=== PATIENT | male | born 1945 | race Caucasian/White ===

== ENCOUNTER → 2019-05-20 14:53 | Outpatient (BNVA) | payer MEDICARE, OTHER, SELFPAY | PROVIDERS: Visit Provider Family Medicine | DX: L98.9 Disorder of the skin and subcutaneous tissue, unspecified (principal) | CPT/HCPCS: 88305 ==

== ENCOUNTER 2022-07-11 03:14 | Emergency (ER) | payer MEDICARE, OTHER, SELFPAY ==
[2022-07-11] VITALS (8 sets, daily range): BP systolic 96–113; BP diastolic 52–65; PULSE 62–86; RESP 16–24; TEMP 37; O2SAT 90–93; BMI 22.3
--- NOTE | 2022-07-11 03:31 | CTR_ITS ---
PROCEDURE INFORMATION: Exam: CT Lumbar Spine Without Contrast Exam date and time: 07/11/2022 3:54 AM Age: 77 years old Clinical indication: Numbness and weakness; Low back pain; Patient HX: Sudden onset of bilateral leg weakness with loss of sensation and back pain with inabilityto bear weight; Additional info: Back pain leg weakness TECHNIQUE: Imaging protocol: Computed tomography of the lumbar spine without contrast. Radiation optimization: All CT scans at this facility use at least one of these dose optimization techniques: automated exposure control; mA and/or kV adjustment per patient size (includes targeted exams where dose is matched to clinical indication); or iterative reconstruction. REPORTING DATA: Count of CT and Cardiac NM exams in prior 12 months: This patient has received 0 known CTs and 0 known cardiac nuclear medicine studies in the 12 months prior to the current study. COMPARISON: [place] [id number] 04/26/2012 4:56 PM RADIATION DOSE METRICS: Total DLP (mGy-cm): 450.36 FINDINGS: Bones/joints: The lumbar spine maintains a normal lordotic curvature. No spondylolisthesis. The vertebral bodies maintain normal height. The intervertebral discs maintain normal height. Mild lytic/sclerotic irregularity of the posterior L1 vertebral body. Questionable 10 mm sclerotic density in the lateral mid portion of the L1 vertebral body. Small sclerotic densities in the L2 vertebral body. Mild deformity in the anterior left superior endplate of L3 concerning for possible fracture versus Schmorl's node formation. Sclerosis in the posterior elements on the right at L3 including portions of the lamina and pedicle. 6 mm sclerotic density in the midportion of the L4 vertebral body. Soft tissues: The paravertebral soft tissues are unremarkable. CT/CT lumbar spine recon [id number] IMPRESSION: 1. Mild deformity in the anterior left superior endplate of L3 concerning for possible fracture, possibly pathologic, versus Schmorl's node formation. 2. Irregularity in the L1, L2, L3, and L4 vertebral bodies, including prominent sclerosis in the right posterior elements at L3. Correlate with any history of malignancy. 3. Recommend nonemergent follow-up MRI for further evaluation.
--- NOTE | 2022-07-11 03:31 | XRR_ITS ---
PROCEDURE INFORMATION: Exam: XR Chest Exam date and time: 07/11/2022 3:38 AM Age: 77 years old Clinical indication: Patient HX: Sudden onset of bilateral leg weakness. Unable to bear weight or stand. TECHNIQUE: Imaging protocol: Radiologic exam of the chest. Views: 1 view. COMPARISON: No relevant prior studies available. FINDINGS: Lungs: The lung parenchyma is clear. Pleural spaces: No pneumothorax. No pleural effusion. Heart/Mediastinum: The cardiomediastinal silhouette is within normal limits. Bones/joints: Unremarkable. XR/XR chest 1V portable [id number] IMPRESSION: No acute cardiopulmonary abnormality.
--- NOTE | 2022-07-11 03:34 | ECG_ITS ---
[facility] Test Date: 2022-07-11 Pat Name: Zain Brown Department: Room: Gender: Male Lube Man: : 1945 Requested By: Marguerite Rose Order Number: [id number] Tootie MD: Bebeto Claros M.D. Measurements Intervals [place] Rate: 77 P: 55 [place]: 148 QRS: 60 QRSD: 101 T: 78 QT: 389 QTc: 441 Interpretive Statements SINUS RHYTHM MODERATE ST DEPRESSION [0.05+ mV ST DEPRESSION] No previous ECG available for comparison Electronically Signed On 07-11-2022 11:00:25 CDT by Bebeto Claros M.D. [id number]
--- NOTE | 2022-07-11 03:35 | CTR_ITS ---
PROCEDURE INFORMATION: Exam: CT Head Without Contrast Exam date and time: 07/11/2022 3:49 AM Age: 77 years old Clinical indication: Walking, difficulty and weakness, extremity; Patient HX: Sudden onset of bilateral leg weakness with loss of sensation and unable to bear weight. TECHNIQUE: Imaging protocol: Computed tomography of the head without contrast. Radiation optimization: All CT scans at this facility use at least one of these dose optimization techniques: automated exposure control; mA and/or kV adjustment per patient size (includes targeted exams where dose is matched to clinical indication); or iterative reconstruction. REPORTING DATA: Count of CT and Cardiac NM exams in prior 12 months: This patient has received 0 known CTs and 0 known cardiac nuclear medicine studies in the 12 months prior to the current study. COMPARISON: No relevant prior studies available. RADIATION DOSE METRICS: Total DLP (mGy-cm): 1021.4 FINDINGS: Brain: Focal 9 x 6 x 4 mm area of increased density in the right frontal lobe (axial series 10, image 40), concerning for acute intraparenchymal hemorrhage. No significant surrounding edema or mass effect. No large territorial ischemic infarct identified. Subcortical and periventricular white matter hypoattenuation likely consistent with mild chronic microvascular ischemic disease. Prominent perivascular spaces versus old lacunar infarcts again noted in the bilateral basal ganglia. Cerebral ventricles: The ventricles are within normal limits. Paranasal sinuses: The visualized sinuses are unremarkable. Mastoid air cells: The visualized mastoid air cells are well aerated. Bones/joints: The osseous structures are intact. Soft tissues: Unremarkable. CT/CT head wo con* [id number] IMPRESSION: 1. Focal 9 x 6 x 4 mm area of increased density in the right frontal lobe, concerning for acute intraparenchymal hemorrhage. 2. Mild chronic microvascular ischemic disease.
--- NOTE | 2022-07-11 03:36 | CTR_ITS ---
PROCEDURE INFORMATION: Exam: CT Abdomen And Pelvis With Contrast Exam date and time: 07/11/2022 3:54 AM Age: 77 years old Clinical indication: Abdominal pain; Patient HX: C/O abd pain TECHNIQUE: Imaging protocol: Computed tomography of the abdomen and pelvis with contrast. Radiation optimization: All CT scans at this facility use at least one of these dose optimization techniques: automated exposure control; mA and/or kV adjustment per patient size (includes targeted exams where dose is matched to clinical indication); or iterative reconstruction. Contrast material: OMNI 350; Contrast volume: 100 ml; Contrast route: INTRAVENOUS (IV); REPORTING DATA: Count of CT and Cardiac NM exams in prior 12 months: This patient has received 0 known CTs and 0 known cardiac nuclear medicine studies in the 12 months prior to the current study. COMPARISON: CR (CHEST, ) 07/11/2022 3:38 AM RADIATION DOSE METRICS: Total DLP (mGy-cm): 450.36 FINDINGS: Lungs: Respiratory motion limiting fine pulmonary detail. Liver: 6 mm cyst in the left lobe of the liver. The liver is normal in size and contour. Gallbladder and bile ducts: The gallbladder appears unremarkable. No intra- or extra-hepatic biliary ductal dilatation. Pancreas: The pancreas appears normal. Spleen: The spleen appears normal. Adrenal glands: The adrenals appear normal. Kidneys and ureters: 10 mm complex cyst versus mass in the medial upper pole the right kidney (axial series 5, image 33). Fluid density cyst in the lower pole the right kidney. Stomach and bowel: The stomach is unremarkable. The small bowel loops are not abnormally dilated. The large bowel loops are not abnormally dilated. Appendix: No signs of appendicitis. Intraperitoneal space: No ascites or significant fluid collection. Vasculature: The aorta is nonaneurysmal. The IVC appears normal. Lymph nodes: There are no enlarged lymph nodes. Urinary bladder: Circumferential bladder wall thickening. Reproductive: The prostate is enlarged with focal protrusion extending from the superior margin into the base of the bladder. Possible hydrocele. Bones/joints: Multiple sclerotic densities noted in the lumbar spine. Schmorl's node formation versus fracture of the superolateral left endplate of L3. Well-marginated sclerotic lesion in the right superior acetabulum measuring 2.2 x 1.9 x 2.6 cm (axial series 5, image 66). Few additional smaller satellite sclerotic densities noted. Focal sclerosis in the right posterior elements of L3. Soft tissues: Lipoma in the superficial soft tissues overlying the left abdominal wall measuring 8 x 2 x 10 cm (axial series 5, image 26). Other findings: Motion artifact limiting exam. CT/CT abdomen pelvis w con* [id number] IMPRESSION: 1. Prostatomegaly with protrusion into the base of the bladder. Recommend follow-up to exclude malignancy. 2. 10 mm complex cyst versus mass in the medial upper pole of the right kidney. Recommend follow-up ultrasound or multiphase MRI for further evaluation. 3. Multiple sclerotic densities noted in the lumbar spine and pelvis, correlate with any history of malignancy. COMMENTS: Consistent with the [employer]'s Incidental Findings Committee white paper (J Am Jose Radiol 2018): Any incidental renal lesion less than 1 cm or classified as too small to characterize, or any incidental cystic renal lesion characterized as simple-appearing, is likely benign. No follow-up imaging is recommended for these lesions per consensus recommendations based on imaging criteria.
--- NOTE | 2022-07-11 03:36 | ED_ITS ---
HPI - Weakness General: Chief complaint: Weakness Stated complaint: leg weakness Time Seen by Provider: 07/11/22 03:16 Source: patient Mode of arrival: ambulatory Limitations: no limitations History of Present Illness: 77-year-old male states he had eaten overnight started having some abdominal cramping with some back pain he states that roughly an hour half ago he started getting severe weakness of his legs. He states that his right leg he cannot move at all any has no feeling that leg and is having weakness in his left leg as well he can move his foot and lift his leg slightly but not really able to move it otherwise. He states he has decrease in Station in that left leg to he states his abdominal and back pain is currently gone no history of any medical issues. Denies any vomiting or diarrhea or fever Associated symptoms: Denies chest pain, chills, dysuria, easy bruising, fever(s), headache(s), nausea or vomiting Review of Systems Const: Denies: fever(s), chills, body aches or change in appetite Eyes: Denies: blurry vision or eye discomfort ENMT: Denies: throat pain or dental pain Card: Denies: chest pain Resp: Denies: dyspnea GI: Reports: abdominal pain; Denies: nausea, vomiting or diarrhea : Denies: dysuria Musc: Reports: back pain and muscle weakness; Denies: neck pain Skin/Breast: Denies: rash Neuro: Denies: headache(s) Psych: Denies: depression Khalif/Lymph: Denies: easy bruising All/Imm: Denies: urticaria PFS ED PFSH: Medical History (Updated 07/11/22 @ 05:06 by Jr Rose MD) No pertinent past medical history Social History Smoking and tobacco status: current every day smoker Physical Exam Const: COMMON NORMALS: no acute distress, patient oriented x3 and healthy appearing HENMT: COMMON NORMALS: normocephalic and atraumatic HEAD & SCALP: normocephalic and atraumatic Eye: COMMON NORMALS: Equal, round and reactive pupils present and EOMs intact bilaterally PUPIL: Yes Equal, round and reactive pupils present Neck/C-Spine: COMMON NORMALS: full ROM and supple Chest: COMMONS NORMALS: normal inspection of the chest and normal palpation of entire chest wall Resp: COMMON NORMALS: normal respiratory effort, No retractions, No use of accessory muscles and clear to auscultation bilaterally AUSCULTATION: clear to auscultation bilaterally Cardio: COMMON NORMALS: regular rate, regular rhythm and No murmurs present (Cardio) RATE: regular rate RHYTHM: regular rhythm GI: COMMON NORMALS: Normal to inspection, nondistended, normoactive bowel so unds present, Soft to palpation, non-tender and no masses PALPATION: Yes Soft to palpation Extremity: COMMON NORMALS: normal to inspection NARRATIVE EXTREMITY EXAM: Severe weakness to the right leg he is unable to move his leg or his feet he has decreased pinprick sensation in the right leg up to his groin he has decreased sensation to pinprick to the left leg up to the knee he is able to lift his left leg against gravity barely but immediately fell he is unable to walk. Neuro: COMMON NORMALS: patient oriented x3 CRANIAL NERVES: Yes CN normal except as noted SPEECH: speech normal DEEP TENDON REFLEXES: Right patellar reflex intensity grade: 2+, Left patellar reflex intensity grade: 2+, Right ankle reflex intensity grade: 2+ and Left ankle reflex intensity grade: 2+ OTHER: Severe weakness to the right leg he is unable to move his leg or his feet he has decreased pinprick sensation in the right leg up to his groin he has decreased sensation to pinprick to the left leg up to the knee he is able to lift his left leg against gravity barely but immediately fell he is unable to walk. He has normal strength sensation to the upper extremity Psych: COMMON NORMALS: mental status grossly normal, Normal thought process present and cooperative THOUGHT PROCESS: Normal thought process present Skin: COMMON NORMALS: no rashes or lesions noted and no wounds GENERAL SKIN EXAM: no rashes or lesions noted Course Vital Signs: Vital signs: Vital Signs Temperature 98.6 F 07/11/22 03:15 Pulse Rate 75 07/11/22 04:15 Respiratory Rate 16 07/11/22 04:45 Blood Pressure 107/59 07/11/22 04:45 Pulse Oximetry 92 07/11/22 04:45 Oxygen Delivery Me thod Room Air 07/11/22 04:45 MDM - Weakness Medical Decision Making Patient presents here with bilateral leg weakness he did have a head CT that showed a possible intraparenchymal hemorrhage. On the CT of his abdomen he does have a possible mass in his bladder also on his CT L-spine he has a deformity and L3 could be pathologic still concerned this patient has cauda equina syndrome as he has bilateral weakness with loss of pinprick his brain hemorrhage does not really explain the symptoms as well I spoke to ER physician at [facility] will transfer there high-level care for neurosurgery capabilities and emergent MRI. Medical Records I reviewed the patient's medical records. Lab Data 07/11/22 03:30 07/11/22 03:30 Radiology Impressions Chest X-Ray 07/11/22 03:31 IMPRESSION: No acute cardiopulmonary abnormality. Lumbar Spine CT 07/11/22 03:31 IMPRESSION: 1. Mild deformity in the anterior left superior endplate of L3 concerning for possible fracture, possibly pathologic, versus Schmorl's node formation. 2. Irregularity in the L1, L2, L3, and L4 vertebral bodies, including prominent sclerosis in the right posterior elements at L3. Correlate with any history of malignancy. 3. Recommend nonemergent follow-up MRI for further evaluation. Head CT 07/11/22 03:35 IMPRESSION: 1. Focal 9 x 6 x 4 mm area of increased density in the right frontal lobe, concerning for acute intraparenchymal hemorrhage. 2. Mild chronic microvascular ischemic disease. ADDENDUM: 07/11/22 0436 THIS REPORT CONTAINS FINDINGS THAT MAY BE CRITICAL TO PATIENT CARE. The findings were verbally communicated via telephone conference with JR Fulton at 4:34 AM CDT on 07/11/2022. The findings were acknowledged and understood. Abdomen/Pelvis CT 07/11/22 03:36 IMPRESSION: 1. Prostatomegaly with protrusion into the base of the bladder. Recommend follow-up to exclude malignancy. 2. 10 mm complex cyst versus mass in the medial upper pole of the right kidney. Recommend follow-up ultrasound or multiphase MRI for further evaluation. 3. Multiple sclerotic densities noted in the lumbar spine and pelvis, correlate with any history of malignancy. COMMENTS: Consistent with the [place] [employer]'s Incidental Findings Committee white paper (J Am Jose Radiol 2018): Any incidental renal lesion less than 1 cm or classified as too small to characterize, or any incidental cystic renal lesion characterized as simple-appearing, is likely benign. No follow-up imaging is recommended for these lesions per consensus recommendations based on imaging criteria. Laboratory Results WBC 9.8 10^3/uL (4.0-10.0) 07/11/22 03:30 RBC 5.09 10^6/uL (4.1-5.3) 07/11/22 03:30 Hgb 15.1 g/dL (11.7-16.6) 07/11/22 03:30 Hct 45.8 % (42.0-52.0) 07/11/22 03:30 MCV 90.0 fl (80-94) 07/11/22 03:30 MCH 29.7 pg (28.0-34.0) 07/11/22 03:30 MCHC 33.0 g/dL (30.0-36.0) 07/11/22 03:30 RDW 13.2 % (12.1-15.1) 07/11/22 03:30 Plt Count 197 10^3/cmm (130-400) 07/11/22 03:30 MPV 11.4 fL (7.4-10.4) H 07/11/22 03:30 Neut % (Auto) 66.5 % 07/11/22 03:30 Lymph % (Auto) 22.7 % 07/11/22 03:30 Atlantic % (Auto) 5.9 % 07/11/22 03:30 Eos % (Auto) 3.3 % 07/11/22 03:30 Baso % (Auto) 1.1 % 07/11/22 03:30 Neut # (Auto) 6.52 10^3/uL (1.8-7.7) 07/11/22 03:30 Lymph # (Auto) 2.2 10^3/uL (0.8-4.8) 07/11/22 03:30 Atlantic # (Auto) 0.6 10^3/uL (0.2-0.9) 07/11/22 03:30 Eos # (Auto) 0.3 10^3/uL (0.0-0.8) 07/11/22 03:30 Baso # (Auto) 0.1 10^3/uL (0.0-0.1) 07/11/22 03:30 Nucleated RBC % (auto) 0 % 07/11/22 03:30 Nucleated RBCs # 0.0 /100WBC 07/11/22 03:30 PT 14.40 SECONDS (12.1-14.9) 07/11/22 03:30 INR 1.09 (0.8-1.2) 07/11/22 03:30 Sodium 140 mmol/L (136-145) 07/11/22 03:30 Potassium 3.7 mmol/L (3.5-5.1) 07/11/22 03:30 Chloride 107 mmol/L (98-107) 07/11/22 03:30 Carbon Dioxide 18 mmol/L (22-29) L 07/11/22 03:30 Anion Gap 18.7 (5-19) 07/11/22 03:30 BUN 21 mg/dL (8-23) 07/11/22 03:30 Creatinine 0.9 mg/dL (0.7-1.2) 07/11/22 03:30 GFR Calculation Not Reportable 07/11/22 03:30 Glucose 161 mg/dL (65-115) H 07/11/22 03:30 POC Glucose 145 mg/dL (70-110) H 07/11/22 03:35 Calculated Osmolality 296 mOsm/kg (285-295) H 07/11/22 03:30 Calcium 8.9 mg/dL (8.5-10.5) 07/11/22 03:30 Magnesium 1.7 mg/dL (1.7-2.3) 07/11/22 03:30 Total Bilirubin 0.5 mg/dL (0.15-1.2) 07/11/22 03:30 AST 17 U/L (0-40) 07/11/22 03:30 ALT 12 U/L (0-41) 07/11/22 03:30 Alkaline Phosphatase 227 U/L (40-130) H 07/11/22 03:30 Total Protein 6.8 g/dL (6.6-8.7) 07/11/22 03:30 Albumin 3.7 g/dL (3.5-5.2) 07/11/22 03:30 Globulin 3.1 g/dL (1.3-4.6) 07/11/22 03:30 EKG Data EKG 1: I personally reviewed and interpreted this EKG as follows: EKG interpretation date: 04/26/23 EKG interpretation time: 03:36 Interpretation: nsr hr [address] or t wave abnormalities qrs 101 qtc 420 Critical Care Time Critical Care Time: Critical Care Time: Yes Total Critical Care Time: 45 Attestation: The high probability of a clinically significant, sudden or life threatening deterioration of the patient's neuro system(s) required my full and direct attention, intervention and personal management. The critical care time is as shown. This time is in addition to time spent performing any reported procedures but includes the following: [x] Data and vital sign review and interpretation [x] Patient assessment, examination and intervention [x] Documentation [x] Medication orders and management Discharge Plan Discharge Patient Disposition: Xfer Short-Term Hosp Clinical Impression: Intraparenchymal hemorrhage of brain, Bilateral leg weakness Condition: Stable Prescriptions: No Action lidocaine (PF) 10 mg/mL (1 %) solution 10 mg SUBCUT ONCE Qty: 1 0RF No Known Home Medications Coding Level of Care Code ED Manager Home Healthcare for Ladarius Whitaker
[2022-07-11 03:41] LABS: Basophils # 0.1 10^3/uL (0.0-0.1); Basophils % 1.1 %; Eosinophils # 0.3 10^3/uL (0.0-0.8); Eosinophils % 3.3 %; Hematocrit 45.8 % (42.0-52.0); Hemoglobin 15.1 g/dL (11.7-16.6); Lymphocytes # 2.2 10^3/uL (0.8-4.8); Lymphocytes % 22.7 %; Mean Corpuscular Hemoglobin 29.7 pg (28.0-34.0); Mean Platelet Volume 11.4 fL (7.4-10.4); Monocytes # 0.6 10^3/uL (0.2-0.9); Monocytes % 5.9 %; Neutrophils # 6.52 10^3/uL (1.8-7.7); Neutrophils % 66.5 %; Nucleated Red Blood Cells % 0 %; Platelet Count 197 10^3/cmm (130-400); Red Blood Count 5.09 10^6/uL (4.1-5.3); Red Cell Distribution Width 13.2 % (12.1-15.1); White Blood Count 9.8 10^3/uL (4.0-10.0)
[2022-07-11 03:42] LABS: Glucose Point of Care 145 mg/dL (70-110)
[2022-07-11 03:59] LABS: INR 1.09 (0.8-1.2)
[2022-07-11 04:05] LABS: Alanine Aminotransferase 12 U/L (0-41); Albumin Level 3.7 g/dL (3.5-5.2); Alkaline Phosphatase 227 U/L (40-130); Anion Gap 18.7 (5-19); Aspartate Amino Transferase 17 U/L (0-40); Blood Urea Nitrogen 21 mg/dL (8-23); Calcium 8.9 mg/dL (8.5-10.5); Carbon Dioxide 18 mmol/L (22-29); Chloride 107 mmol/L (98-107); Globulin 3.1 g/dL (1.3-4.6); Glucose 161 mg/dL (65-115); Magnesium 1.7 mg/dL (1.7-2.3); Osmolality Calculated 296 mOsm/kg (285-295); Potassium 3.7 mmol/L (3.5-5.1); Sodium 140 mmol/L (136-145); Total Bilirubin 0.5 mg/dL (0.15-1.2); Total Protein 6.8 g/dL (6.6-8.7)
[2022-07-11] MEDS: iohexol 350 mg/mL 500 mL Btl (per mL) IV (04:11)
[2022-07-11 05:20] LABS: Add Urine Culture? No; Add Urine Microscopic? YES; Bacteria Urine 1+ /hpf; Bilirubin Urine Neg (Negative); Blood Urine 2+ (Negative); Glucose Urine UA Norm (Normal); Ketones Urine Negative (Negative); Leukocyte Esterase Urine Negative (Negative); Mucus Urine 2+ /hpf; Nitrate Urine Negative (Negative); Protein Urine Neg (Negative); RBC Urine 0-4 /hpf (0-2); Specific Gravity, Urine 1.025 (1.005-1.030); Squamous Epithelial Cell Urine 0-4 /hpf (0-5); Urine Appearance Clear (CLEAR); Urine Color Yellow (Yellow); Urobilinogen Urine Neg (Negative); pH Urine 5 (5-7)
--- NOTE | 2022-07-13 12:52 | DCPLANNER ---
manager telemarketing called patient due to no primary care physician - no answer at this time.
== END 2022-07-11 05:51 | disposition short-term general hospital (02) ==
PROVIDERS: Emergency Provider Emergency Medicine
DX: I61.8 Other nontraumatic intracerebral hemorrhage (principal); R53.1 Weakness; F17.210 Nicotine dependence, cigarettes, uncomplicated
CPT/HCPCS: 36416; 51702; 70450; 71045; 74177; 80053; 81001; 82962; 83735; 85025; 85610; 93005; 99285; Q9967

== ENCOUNTER 2022-08-15 10:58 | Oncology outpatient (recurring) (ONCR) | payer MEDICARE, OTHER, SELFPAY | END 2022-08-15 23:59 | disposition home or self-care (01) | LOC: ONCMED 10:59 | PROVIDERS: PCP Family Medicine; Visit Provider Internal Medicine Medical Oncology | DX: C61 Malignant neoplasm of prostate (principal); C79.51 Secondary malignant neoplasm of bone; G95.29 Other cord compression; I82.401 Acute embolism and thrombosis of unspecified deep veins of right lower extremity; F17.210 Nicotine dependence, cigarettes, uncomplicated; Z79.01 Long term (current) use of anticoagulants; Z79.52 Long term (current) use of systemic steroids; Z79.818 Long term (current) use of other agents affecting estrogen receptors and estrogen levels; Z79.899 Other long term (current) drug therapy | CPT/HCPCS: 99205 ==

== ENCOUNTER → 2022-08-22 12:52 | Outpatient (BNVA) | payer MEDICARE, OTHER, SELFPAY | PROVIDERS: PCP Family Medicine; Visit Provider Nurse Practitioner | DX: C61 Malignant neoplasm of prostate (principal) | CPT/HCPCS: 99215 ==

== ENCOUNTER 2022-08-29 09:00 | Oncology outpatient (recurring) (ONCR) | payer MEDICARE, OTHER, SELFPAY ==
[2022-08-22 14:11] LABS: Basophils # 0.1 10^3/uL (0.0-0.1); Basophils % 1.1 %; Eosinophils # 0.1 10^3/uL (0.0-0.8); Eosinophils % 1.5 %; Hematocrit 43.5 % (42.0-52.0); Hemoglobin 13.9 g/dL (11.7-16.6); Lymphocytes # 1.6 10^3/uL (0.8-4.8); Lymphocytes % 22.5 %; Mean Corpuscular Hemoglobin 29.1 pg (28.0-34.0); Mean Corpuscular Volume 91.2 fl (80-94); Mean Platelet Volume 11.3 fL (7.4-10.4); Monocytes # 0.7 10^3/uL (0.2-0.9); Monocytes % 9.4 %; Neutrophils # 4.61 10^3/uL (1.8-7.7); Neutrophils % 65.1 %; Nucleated Red Blood Cells % 0 %; Platelet Count 221 10^3/cmm (130-400); Red Blood Count 4.77 10^6/uL (4.1-5.3); Red Cell Distribution Width 13.3 % (12.1-15.1); White Blood Count 7.1 10^3/uL (4.0-10.0)
[2022-08-22] MEDS: leuprolide 22.5 mg Kit IM (14:24)
[2022-08-22] MEDS: denosumab 120 mg SDV SUBCUT (14:25)
[2022-08-22 14:39] LABS: Alanine Aminotransferase 32 U/L (0-41); Albumin Level 3.9 g/dL (3.5-5.2); Alkaline Phosphatase 194 U/L (40-130); Anion Gap 13.9 (5-19); Aspartate Amino Transferase 27 U/L (0-40); Blood Urea Nitrogen 12 mg/dL (8-23); Calcium 8.8 mg/dL (8.5-10.5); Carbon Dioxide 26 mmol/L (22-29); Chloride 103 mmol/L (98-107); Globulin 2.7 g/dL (1.3-4.6); Glucose 82 mg/dL (65-115); Osmolality Calculated 287 mOsm/kg (285-295); Potassium 3.9 mmol/L (3.5-5.1); Sodium 139 mmol/L (136-145); Thyroid Stimulating Hormone 0.46 uIU/mL (0.27-4.20); Total Bilirubin 0.5 mg/dL (0.15-1.2); Total Protein 6.6 g/dL (6.6-8.7)
--- NOTE | 2022-08-28 09:04 | N.ONRAD NP_ITS ---
Radiation Oncology Consultation Patient Name: Zain Brown Date of : 1945 Date of Service: 08/28/2022 Attending Physician: Nate Núñez M.D. Zain Brown was seen in consultation this afternoon at the request of Lan Perry M.D. for consideration of palliative radiotherapy in the management of metastatic prostate cancer. He was evaluated at the [facility]'s Emergency Department on July 11, 2022 for bilateral lower extremity weakness. A lumbar spine CT scan described mixed lytic and sclerotic lesions involving the first through fourth lumbar vertebral bodies. He was transferred to [facility] in [place], [place] for neurosurgical consultation. An MRI of the cervical, thoracic and lumbar spine (independently reviewed in [facility]) confirmed enhancing lesions involving the C4-C7, T1, T3, T5-T12, and extradural lesions at T8 that measured 1.5 mm x 0.8 mm and T9 measuring 2.4 cm x 0.8 cm which was associated with thecal sac compression. An MRI of the lumbar spine demonstrated enhancing lesions within the lumbar vertebral bodies, S1, and S2. There was no canal stenosis or thecal sac compression. A thoracic laminectomy and spinal stabilization was performed July 11, 2022. A bone biopsy at T9 diagnosed metastatic prostate carcinoma. A PSA level obtained was 267ng/mL. Androgen deprivation therapy was prescribed (bicalutamide daily). He was discharged on July 16, 2022 for inpatient rehabilitation services. The first cycle of Eligard was administered on August 22, 2022. He was referred for palliative spinal radiotherapy. I discussed with Mr. Benitez the role for palliative radiotherapy. I would recommend a 1-week course of radiation therapy. A planning CT scan will be acquired prior to beginning treatment to delineate the clinical target volume. The potential toxicities of thoracic radiotherapy were reviewed. The patient has verbalized understanding would like to proceed as recommended. The patient???s medical treatment has been discussed with Lan Perry M.D. Signed by: Dr. Nate Núñez 08/28/2022 9:02:29 AM
--- NOTE | 2022-08-30 | CT_ITS ---
Radiation Therapy Planning CT images; total exam DLP: 504.79 mGy-cm MTDD
== END 2022-08-29 23:59 | disposition home or self-care (01) ==
PROVIDERS: Internal Medicine Medical Oncology; PCP Family Medicine; Visit Provider Radiology Radiation Oncology
DX: C61 Malignant neoplasm of prostate (principal); C79.51 Secondary malignant neoplasm of bone; G95.29 Other cord compression; Z79.52 Long term (current) use of systemic steroids; Z79.818 Long term (current) use of other agents affecting estrogen receptors and estrogen levels; Z79.899 Other long term (current) drug therapy; Z51.0 Encounter for antineoplastic radiation therapy
CPT/HCPCS: 77290; 77295; 77300; 77334; 80053; 84153; 84443; 85025; 96372; 96402; 99205; 99215; J0897; J9217

== ENCOUNTER 2022-09-07 10:55 | Oncology outpatient (recurring) (ONCR) | payer MEDICARE, OTHER, SELFPAY ==
--- NOTE | 2022-09-04 15:42 | ONCRAD TMN_ITS ---
Radiation Oncology Treatment Management Note Patient Name: Zain Brown Date of : 1945 Date of Service: 09/04/2022 Attending Physician: Nate Núñez M.D. Zain Brown is a 77 year-old white male recently diagnosed with metastatic prostate cancer. He was evaluated at the [facility]'s Emergency Department on July 11, 2022 for bilateral lower extremity weakness. A lumbar spine CT scan described mixed lytic and sclerotic lesions involving the first through fourth lumbar vertebral bodies. He was transferred to [facility] in [place], [place] for neurosurgical consultation. An MRI of the cervical, thoracic and lumbar spine confirmed enhancing lesions involving the C4-C7, T1, T3, T5-T12, and extradural lesions at T8 that measured 1.5 mm x 0.8 mm and T9 measuring 2.4 cm x 0.8 cm which were associated with thecal sac compression. An MRI of the lumbar spine demonstrated enhancing lesions within the lumbar vertebral bodies, S1, and S2. There was no canal stenosis or thecal sac compression. A thoracic laminectomy and spinal stabilization was performed July 11, 2022. A bone biopsy at T9 diagnosed metastatic prostate carcinoma. A PSA level obtained was 267ng/mL. Androgen deprivation therapy was prescribed (bicalutamide daily). He was discharged on July 16, 2022 for inpatient rehabilitation services. The first cycle of Eligard was administered on August 22, 2022. The patient has received 8 Gy of a prescribed 20 Gy to T8 through T9 with a 3-dimensional conformal radiotherapy plan utilizing an AP port and wedge pair. Upon review of systems, he denied any new complaints. On physical examination, the patient weighed 140 lbs. His temperature was 96.7 ???F and the blood pressure was 104/65 mmHg. The pulse was 88 bpm and his respiratory rate was 16. Continue palliative radiotherapy as prescribed. Signed by: Dr. Nate Núñez 09/04/2022 3:41:02 PM
--- NOTE | 2022-09-07 11:06 | N.ONRD TS_ITS ---
Radiation OncologyTreatment Summary Patient Name: Zain Brown Date of : 1945 Date of Service: 09/07/2022 Attending Physician: Nate Núñez M.D. Zain Brown has completed palliative radiotherapy for the management of metastatic prostate cancer. He was evaluated at the [facility] Emergency Department on July 11, 2022 for bilateral lower extremity weakness. A lumbar spine CT scan described mixed lytic and sclerotic lesions involving the first through fourth lumbar vertebral bodies. He was transferred to [facility] in [place], [place] for neurosurgical consultation. An MRI of the cervical, thoracic and lumbar spine confirmed enhancing lesions involving the C4-C7, T1, T3, T5-T12, and extradural lesions at T8 that measured 1.5 mm x 0.8 mm and T9 measuring 2.4 cm x 0.8 cm which were associated with thecal sac compression. An MRI of the lumbar spine demonstrated enhancing lesions within the lumbar vertebral bodies, S1, and S2. There was no canal stenosis or thecal sac compression. A thoracic laminectomy and spinal stabilization was performed July 11, 2022. A bone biopsy at T9 diagnosed metastatic prostate carcinoma. A PSA level obtained was 267ng/mL. Androgen deprivation therapy was prescribed (bicalutamide daily). He was discharged on July 16, 2022 for inpatient rehabilitation services. The first cycle of Eligard was administered on August 22, 2022. Daily radiotherapy was administered between the dates of September 03, 2022 through September 07, 2022. A prescribed dose of 20 Gy was delivered in 5 fractions encompassing 5 elapsed days. The T8 and T9 vertebral bodies were treated with a 3-dimensional conformal radiotherapy plan with an AP field and an LPO/RPO wedge pair. The AP field utilized a 0??? gantry angle with a collimator angle of 90???. The field size measured 5 cm x 5 cm within the X-direction and 5 cm x 5 cm within the Y-direction. The SSD measured 83.4 cm with the field delivering 136 monitor units. The LPO port employed a gantry angle of 150??? and a collimator angle of 90???. The field size spanned 5 cm x 5 cm within X-direction and 5 cm x 5 cm within the Y-direction. The SSD was 95 cm with the field allocating 187 monitor units. An enhanced dynamic wedge 45??? was incorporated. The RPO field was designed with a gantry angle of 210??? and a collimator angle of 90???. The measured field size was 5 cm x 5 cm within the X-direction and 5.5 cm x 5.5 cm within the Y-direction. The measured SSD was 93.9 cm with the field apportioning 197 monitor units. A 45??? enhanced dynamic wedge was implemented. All treatments were performed with the [employer] linear accelerator and an isocentric technique. The dose was calculated by Anisotropic Analytic Algorithm. A photon energy of 15 MV was prescribed with the plan normalized to deliver 100% of the prescription dose to 100% of the planning target volume. Signed by: Dr. Nate Núñez 09/07/2022 11:05:07 AM
== END 2022-09-14 23:59 | disposition home or self-care (01) ==
PROVIDERS: PCP Family Medicine; Visit Provider Radiology Radiation Oncology
DX: Z51.0 Encounter for antineoplastic radiation therapy (principal); C61 Malignant neoplasm of prostate; C79.51 Secondary malignant neoplasm of bone; Z79.52 Long term (current) use of systemic steroids; Z79.899 Other long term (current) drug therapy
CPT/HCPCS: 77336; 77387; 77412; 99024

== ENCOUNTER 2022-09-26 09:05 | Oncology outpatient (recurring) (ONCR) | payer MEDICARE, OTHER, SELFPAY ==
[2022-09-19 09:12] VITALS: BP 124/75; PULSE 77; RESP 18; TEMP 36.3; O2SAT 92
[2022-09-19 09:24] LABS: Basophils # 0.1 10^3/uL (0.0-0.1); Basophils % 1.8 %; Eosinophils % 0.5 %; Hemoglobin 14.3 g/dL (11.7-16.6); Lymphocytes # 1.2 10^3/uL (0.8-4.8); Lymphocytes % 17.6 %; Mean Corpuscular HGB Conc 32.5 g/dL (30.0-36.0); Mean Corpuscular Hemoglobin 29.8 pg (28.0-34.0); Mean Corpuscular Volume 91.7 fl (80-94); Mean Platelet Volume 10.9 fL (7.4-10.4); Monocytes # 0.5 10^3/uL (0.2-0.9); Monocytes % 7.5 %; Neutrophils # 4.78 10^3/uL (1.8-7.7); Neutrophils % 71.8 %; Nucleated Red Blood Cells % 0 %; Platelet Count 305 10^3/cmm (130-400); Red Cell Distribution Width 13.9 % (12.1-15.1); White Blood Count 6.7 10^3/uL (4.0-10.0)
[2022-09-19 09:54] LABS: Alanine Aminotransferase 11 U/L (0-41); Albumin Level 3.6 g/dL (3.5-5.2); Alkaline Phosphatase 98 U/L (40-130); Aspartate Amino Transferase 14 U/L (0-40); Blood Urea Nitrogen 12 mg/dL (8-23); Calcium 7.9 mg/dL (8.5-10.5); Carbon Dioxide 23 mmol/L (22-29); Chloride 108 mmol/L (98-107); Globulin 2.7 g/dL (1.3-4.6); Glucose 83 mg/dL (65-115); Osmolality Calculated 289 mOsm/kg (285-295); Sodium 140 mmol/L (136-145); Thyroid Stimulating Hormone 0.45 uIU/mL (0.27-4.20); Total Bilirubin 0.3 mg/dL (0.15-1.2); Total Protein 6.3 g/dL (6.6-8.7)
[2022-09-19 09:56] LABS: Anion Gap 13.3 (5-19); Potassium 4.3 mmol/L (3.5-5.1)
[2022-09-26 09:10] VITALS: BP 129/77; PULSE 67; RESP 18; TEMP 36.1; O2SAT 90
[2022-09-26 09:25] LABS: Basophils # 0.1 10^3/uL (0.0-0.1); Basophils % 1.6 %; Eosinophils # 0.1 10^3/uL (0.0-0.8); Eosinophils % 1.3 %; Hematocrit 45.8 % (42.0-52.0); Hemoglobin 14.8 g/dL (11.7-16.6); Lymphocytes # 1.4 10^3/uL (0.8-4.8); Lymphocytes % 18.2 %; Mean Corpuscular HGB Conc 32.3 g/dL (30.0-36.0); Mean Corpuscular Hemoglobin 29.5 pg (28.0-34.0); Mean Corpuscular Volume 91.4 fl (80-94); Mean Platelet Volume 11.3 fL (7.4-10.4); Monocytes # 0.5 10^3/uL (0.2-0.9); Monocytes % 7.1 %; Neutrophils # 5.45 10^3/uL (1.8-7.7); Neutrophils % 71.5 %; Nucleated Red Blood Cells % 0 %; Platelet Count 242 10^3/cmm (130-400); Red Blood Count 5.01 10^6/uL (4.1-5.3); Red Cell Distribution Width 14.1 % (12.1-15.1); White Blood Count 7.6 10^3/uL (4.0-10.0)
[2022-09-26 09:56] LABS: Alanine Aminotransferase 13 U/L (0-41); Albumin Level 3.8 g/dL (3.5-5.2); Alkaline Phosphatase 102 U/L (40-130); Anion Gap 12.2 (5-19); Aspartate Amino Transferase 20 U/L (0-40); Blood Urea Nitrogen 13 mg/dL (8-23); Calcium 8.8 mg/dL (8.5-10.5); Carbon Dioxide 26 mmol/L (22-29); Chloride 104 mmol/L (98-107); Globulin 3.1 g/dL (1.3-4.6); Glucose 82 mg/dL (65-115); Osmolality Calculated 285 mOsm/kg (285-295); Potassium 4.2 mmol/L (3.5-5.1); Sodium 138 mmol/L (136-145); Testosterone Total 6.1 ng/dL (193-740); Thyroid Stimulating Hormone 0.92 uIU/mL (0.27-4.20); Total Bilirubin 0.3 mg/dL (0.15-1.2); Total Protein 6.9 g/dL (6.6-8.7)
[2022-09-26] MEDS: denosumab 120 mg SDV SUBCUT (10:49)
[2022-09-26 10:52] VITALS: BP 100/69; PULSE 74; RESP 20; TEMP 36.3; O2SAT 92
[2022-09-26 12:38] LABS: 25 Hydroxy Vitamin D 38 ng/mL (30-100)
== END 2022-10-15 23:59 | disposition home or self-care (01) ==
PROVIDERS: Nurse Practitioner; PCP Family Medicine; Visit Provider Radiology Radiation Oncology
DX: C61 Malignant neoplasm of prostate (principal); C79.51 Secondary malignant neoplasm of bone; G93.5 Compression of brain; I82.501 Chronic embolism and thrombosis of unspecified deep veins of right lower extremity; Z79.01 Long term (current) use of anticoagulants; Z79.818 Long term (current) use of other agents affecting estrogen receptors and estrogen levels; Z79.899 Other long term (current) drug therapy; F17.210 Nicotine dependence, cigarettes, uncomplicated; R53.83 Other fatigue
CPT/HCPCS: 36415; 80053; 82306; 84153; 84403; 84443; 85025; 96401; 99214; 99215; J0897

== ENCOUNTER 2022-10-25 14:59 | Oncology outpatient (recurring) (ONCR) | payer MEDICARE, OTHER, SELFPAY ==
[2022-10-25] MEDS: denosumab 120 mg SDV SUBCUT (15:14)
[2022-10-25 15:17] VITALS: BP 93/66; PULSE 84; TEMP 35.9; O2SAT 94
== END 2022-11-15 23:59 | disposition home or self-care (01) ==
PROVIDERS: PCP Family Medicine; Visit Provider Radiology Radiation Oncology
DX: C61 Malignant neoplasm of prostate (principal); C79.51 Secondary malignant neoplasm of bone
CPT/HCPCS: 96372; J0897

== ENCOUNTER 2022-11-22 10:57 | Oncology outpatient (recurring) (ONCR) | payer MEDICARE, OTHER, SELFPAY ==
[2022-11-22 11:04] VITALS: BP 112/77; PULSE 77; RESP 18; TEMP 36.2; O2SAT 92
[2022-11-22 11:24] LABS: Basophils # 0.1 10^3/uL (0.0-0.1); Basophils % 1.2 %; Eosinophils # 0.2 10^3/uL (0.0-0.8); Eosinophils % 3.5 %; Hematocrit 45.7 % (37-53); Lymphocytes # 1.2 10^3/uL (0.8-4.8); Lymphocytes % 20.6 %; Mean Corpuscular HGB Conc 33.3 g/dL (30-55); Mean Corpuscular Volume 90.3 fl (82-101); Monocytes # 0.6 10^3/uL (0.2-0.9); Monocytes % 9.7 %; Neutrophils # 3.84 10^3/uL (1.8-7.7); Neutrophils % 64.3 %; Nucleated Red Blood Cells % 0 %; Platelet Count 182 10^3/cmm (157-399); Red Blood Count 5.06 10^6/uL (3.85-5.65); Red Cell Distribution Width 14.4 % (12.1-15.1); White Blood Count 5.97 10^3/uL (3.29-11.43)
[2022-11-22 11:51] LABS: Alanine Aminotransferase 9 U/L (0-41); Alkaline Phosphatase 64 U/L (40-130); Aspartate Amino Transferase 13 U/L (0-40); Blood Urea Nitrogen 11 mg/dL (8-23); Calcium 8.6 mg/dL (8.5-10.5); Carbon Dioxide 26 mmol/L (22-29); Chloride 104 mmol/L (98-107); Globulin 2.6 g/dL (1.3-4.6); Glucose 104 mg/dL (65-115); Osmolality Calculated 286 mOsm/kg (285-295); Prostate Specific Antigen 0.222 ng/mL (0-4); Sodium 138 mmol/L (136-145); Testosterone Total 7.4 ng/dL (193-740); Total Bilirubin 0.2 mg/dL (0.15-1.2); Total Protein 6.6 g/dL (6.6-8.7)
[2022-11-22 11:52] LABS: Anion Gap 12.5 (5-19); Potassium 4.5 mmol/L (3.5-5.1)
[2022-11-22 14:05] VITALS: BP 130/62; PULSE 69; RESP 16; TEMP 36.1; O2SAT 94
[2022-11-22] MEDS: denosumab 120 mg SDV SUBCUT (14:09)
[2022-11-22] MEDS: leuprolide 22.5 mg Kit IM (14:09)
== END 2022-12-15 23:59 | disposition home or self-care (01) ==
PROVIDERS: Nurse Practitioner; PCP Family Medicine; Visit Provider Radiology Radiation Oncology
DX: Z51.11 Encounter for antineoplastic chemotherapy (principal); C61 Malignant neoplasm of prostate; C79.51 Secondary malignant neoplasm of bone; Z53.9 Procedure and treatment not carried out, unspecified reason
CPT/HCPCS: 36415; 80053; 84153; 84403; 85025; 96372; 96402; 99214; J0897; J9217

== ENCOUNTER → 2022-12-03 12:49 | Outpatient (BNVA) | payer MEDICARE, OTHER, SELFPAY | PROVIDERS: PCP Family Medicine; Visit Provider Otolaryngology | DX: H61.91 Disorder of right external ear, unspecified (principal) | CPT/HCPCS: 99204 ==

== ENCOUNTER 2022-12-25 10:27 | Day surgery (SDC) | payer MEDICARE, OTHER, SELFPAY ==
[2022-12-24 13:50] VITALS: BMI 19.8
[2022-12-25] VITALS (7 sets, daily range): BP systolic 98–109; BP diastolic 59–70; PULSE 71–95; RESP 16–18; TEMP 35.8–36.6; O2SAT 91–98
[2022-12-25] MEDS: sodium chloride 0.9% 1,000 ML 30 ML IV (11:42)
--- NOTE | 2022-12-25 11:57 | P.HPUD_ITS ---
Surgery/Procedure H&P Update DATE OF PROCEDURE: December 25, 2022 DATE H&P PERFORMED: 12/03/22 H&P UPDATE INFORMATION: I have reviewed H&P completed within last 30 days, I have examined patient prior to procedure and No changes to prior documentation CHANGES TO PREVIOUS DOCUMENTATION: Note no changes PREOP DIAGNOSIS: Malignant lesion right superior helical rim PRIMARY INDICATION FOR PROCEDURE: Malignant lesion right superior helical rim for excision and repair with frozen section margins PLANNED PROCEDURE: Operation Date: 12/25/22 12:00 Proposed Procedures p excision of right auricular lesion w/repair,w/frozen section- 00675,H61.9(Right) - Isac Jacobs MD
[2022-12-25] MEDS: ceFAZolin 2,000 MG in sodium chloride 0.9% (plus) 50 ML 100 MG IV (12:02)
[2022-12-25] MEDS: lidocaine-epi 2% 1.7mL Cartridge (OR Only) 6.8 ML XX (12:40)
[2022-12-25] MEDS: neomycin-poly-bacitracin oint 28 gm 1 APPLIC TOPICAL (12:53)
--- NOTE | 2022-12-25 13:02 | PM.OP ---
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 Implants: No implants Specimens removed/disposition: Superior helical rim lesion and surrounding skin Pathology: Same Surgeon: Isac Jacobs MD Anesthesia: MAC and Local Estimated blood loss: 10 mL Complications: No complications encountered Findings: Patient has a slowly growing right superior helical rim skin lesion which has been ulcerating and bleeding and causing raised edges as it grows. The lesion is in excess of 1 cm now. Brief History: 77-year-old male patient with a very suspicious right superior helical rim skin lesion consistent with basal cell carcinoma. Patient is being brought to the operating room at this time to undergo by his own choice, the excision and repair under local MAC anesthesia. The procedure its risks and complications of been explained in detail in the office setting. With these things understood informed consent was granted and witnessed. The risks discussed included bleeding infection numbness scarring swelling bruising cosmetic change and need for additional treatment as well as anesthetic risks. With these things understood informed consent was granted and witnessed. Procedure: Description of procedure: The patient was placed on the operating table in the supine position. Adequate local MAC anesthesia was obtained. Patient received antibiotics IV. He was breathing oxygen through a facial mask. The area of the right ear showed the sign the site. This was cleansed with alcohol. Infiltration with a total of 6.8 mL of 2% Xylocaine with 1-100,000 epinephrine was accomplished. Then the patient was prepped and draped after using ChloraPrep and allowing it to dry for a minimum of 3 minutes. After the drapes were applied and timeout was accomplished a marking pen was used to outline a fusiform excision pattern with the apices anteriorly and posteriorly. A 15 blade was used to create the incision and carried it down to the perichondrial layer. Some of the cartilage along with the skin and subcutaneous tissue was removed. The length of the incision was 3 cm in length and 2 cm in greatest width to get margins. While that was sent to pathology marked posteriorly hemostasis was attained with bipolar cautery. Then when the pathology returned as basal cell carcinoma with margins clear and having taken an additional deep margin of cartilage, I felt that nothing more needed to be done except for the closure. Additional trimming of cartilage and some of the skin and subcutaneous tissue was accomplished making this a complex closure. Then a running 5-0 nylon was used to close the skin. This gave a flat top of the ear appearance. The area was cleansed. Neosporin ointment was applied and then a sterile Band-Aid was applied. Drapes were removed and the patient was returned to anesthesia for wake-up. The patient tolerated the procedure well had an estimated blood loss of 10 mL and arrived in recovery in stable condition.
--- NOTE | 2022-12-25 14:00 | P.ANESASSM_ITS ---
Pre-Anesthetic Assessment Height/Weight: Height 1.8 m Weight 64.41 kg Temp Pulse Resp BP Pulse Ox O2 Del Method O2 Flow Rate 97.7 F 72 16 103/64 91 Room Air 6 12/25/22 13:30 12/25/22 13:30 12/25/22 13:30 12/25/22 13:30 12/25/22 13:30 12/25/22 13:30 12/25/22 13:10 Preop Diagnosis: Malignant lesion right superior helical rim Operation Date: 12/25/22 12:00 Proposed Procedures p excision of right auricular lesion w/repair,w/frozen section- 76453,H61.9(Right) - Isac Jacobs MD Familial anesthetic complications: none Was Beta Navin taken within 24 hours: N/A Was Clonidine taken within 24 hours: N/A Last intake: Intake Last Liquid Date 12/24/22 Last Liquid Time 20:30 Last Solid Date 12/24/22 Last Solid Time 20:30 Social No alcohol and No tobacco Exam alert, oriented x 3, clear to auscultation bilaterally and regular rate & rhythm Airway Submandibular: within normal limits Cervical ROM: within normal limits Mallampati: Class II Dentition: chipped Comments: Comments: missing some CV/HEM Deep Vein Thrombosis and Hypertension Anesthetic Plan ASA status: 3 Anesthesia: Choice Medications/Allergies Home Medications Medication Instructions Recorded Confirmed Last Taken Type Saccharomyces boulardii 250 mg 500 mg PO BID 08/15/22 12/24/22 Unknown History capsule acetaminophen 325 mg capsule 650 mg PO Q6H 08/15/22 12/24/22 Unknown History alprazolam 0.25 mg tablet 0.25 mg PO TID PRN anxiety 08/15/22 12/24/22 Unknown History bisacodyl 10 mg rectal suppository 10 mg MI DAILY 08/15/22 12/24/22 Unknown History cholecalciferol (vitamin D3) 25 50 mcg PO DAILY 08/15/22 12/24/22 12/24/22 History mcg (1,000 unit) capsule cyanocobalamin 2 mg-levomefolate 1 tab PO DAILY 08/15/22 12/24/22 Unknown History chuck 1.13 mg-pyridoxine 25 mg tablet (Foltx) melatonin 3 mg tablet 6 mg PO .COMPLEX 08/15/22 12/24/22 12/23/22 History naloxone 4 mg/actuation nasal spray 4 mg intranasal Q3M PRN Opioid 08/15/22 12/24/22 Unknown History Overdose polyethylene glycol 3350 17 17 g PO DAILY 08/15/22 12/24/22 Unknown History gram/dose oral powder sennosides 8.6 mg tablet 8.6 mg PO DAILY 08/15/22 12/24/22 12/24/22 History amlodipine 10 mg tablet 10 mg PO DAILY #30 tabs 09/03/22 12/24/22 12/24/22 Rx oxycodone 5 mg tablet 5 mg PO BID PRN pain 30 days #60 09/03/22 12/25/22 11/06/22 Rx tabs apixaban 5 mg tablet (Eliquis) 5 mg PO BID #60 tabs 09/26/22 12/24/22 12/24/22 Rx famotidine 20 mg tablet 20 mg PO BID PRN Indigestion 11/22/22 12/24/22 12/24/22 History gabapentin 100 mg capsule 200 mg PO Q8H #90 caps 12/12/22 12/24/22 12/25/22 Rx tamsulosin 0.4 mg capsule 0.8 mg PO DAILY 12/24/22 12/24/22 12/25/22 History acetaminophen 300 mg-codeine 30 mg 2 tab PO Q4H PRN pain 4 days #30 12/25/22 Unknown Rx tablet tabs apalutamide 60 mg tablet (Erleada) 240 mg PO DAILY 12/25/22 12/24/22 12/24/22 History Allergies Allergy/AdvReac Type Severity Reaction Status Date / Time No Known Allergies Allergy Verified 12/03/22 13:03 Current Medications Generic Name Dose Route Start Last Admin Trade Name Freq PRN Reason Stop Dose Admin Sodium Chloride 1,000 mls @ 30 mls/hr 12/25/22 10:45 12/25/22 11:42 Sodium Chloride 0.9% IV 12/26/22 10:44 30 mls/hr .Q24H SINA Administration PFSH Anesthesia Medical History Deep vein thrombosis, lower right extremity Prostate cancer Surgical History History of inguinal hernia repair History of laminectomy (07/11/22) Thoracic laminectomy with stabilization Family History Mother Dementia Denies family history of Diabetes CAD (coronary artery disease) Clotting disorder Hyperlipidemia Psychiatric illness Chronic kidney disease (CKD) Suicide Anesthesia complication Bleeding disorder Lung disease Cancer Hypertension Stroke Social History Smoking and tobacco status: current every day smoker cigarettes Packs smoked per day: 0.75 Years cigarettes smoked: 50 Data Anesthesia Cardiac Studies: No Data to Display
--- NOTE | 2022-12-25 16:41 | ANE.PACU2 ---
Inpatient post-anesthesia follow up: Airway intact: Yes Vital signs: Temperature 97.9 F Pulse Rate 71 Respiratory Rate 16 Blood Pressure 109/67 Pulse Oximetry 93 Oxygen Delivery Me thod Room Air Oxygen Flow Rate 6 Fraction of Inspir ed Oxygen Hydration adequate: Yes Nausea and vomiting: No Pain level: 1 Mental status: Baseline
== END 2022-12-25 14:10 | disposition home or self-care (01) ==
PROVIDERS: PCP Family Medicine; Visit Provider Otolaryngology
PROC: (CPT 11643; principal; 2022-12-25 12:00)
DX: C44.212 Basal cell carcinoma of skin of right ear and external auricular canal (principal); Z86.718 Personal history of other venous thrombosis and embolism; I10 Essential (primary) hypertension; Z85.46 Personal history of malignant neoplasm of prostate; F17.210 Nicotine dependence, cigarettes, uncomplicated
CPT/HCPCS: 11643; 13152; 88304; 88331; J0690; J2405; J2704; J3010; J7030

== ENCOUNTER → 2023-01-01 09:32 | Outpatient (BNVA) | payer MEDICARE, OTHER, SELFPAY | PROVIDERS: PCP Family Medicine; Visit Provider Otolaryngology | DX: Z48.817 Encounter for surgical aftercare following surgery on the skin and subcutaneous tissue (principal); C44.212 Basal cell carcinoma of skin of right ear and external auricular canal | CPT/HCPCS: 99024 ==

== ENCOUNTER → 2023-01-04 10:23 | Outpatient (BNVA) | payer MEDICARE, OTHER, SELFPAY | PROVIDERS: PCP Family Medicine; Visit Provider Otolaryngology | DX: Z48.817 Encounter for surgical aftercare following surgery on the skin and subcutaneous tissue (principal); C44.212 Basal cell carcinoma of skin of right ear and external auricular canal | CPT/HCPCS: 99024 ==

== ENCOUNTER 2023-02-14 13:15 | Oncology outpatient (recurring) (ONCR) | payer MEDICARE, OTHER, SELFPAY ==
[2023-01-17] MEDS: denosumab 120 mg SDV SUBCUT (15:28)
[2023-01-17 16:00] VITALS: BP 105/68; PULSE 68; RESP 17; TEMP 36.2; O2SAT 92
[2023-02-14 13:30] VITALS: BP 119/75; PULSE 67; RESP 16; TEMP 36.4; O2SAT 92
[2023-02-14 13:39] LABS: Basophils # 0.1 10^3/uL (0.0-0.1); Basophils % 1.4 %; Eosinophils # 0.2 10^3/uL (0.0-0.8); Eosinophils % 2.2 %; Lymphocytes # 1.3 10^3/uL (0.8-4.8); Lymphocytes % 17.7 %; Mean Corpuscular HGB Conc 33.3 g/dL (30-55); Mean Corpuscular Hemoglobin 31.1 pg (27-33); Mean Corpuscular Volume 93.7 fl (82-101); Mean Platelet Volume 11.6 fL (7.4-10.4); Monocytes # 0.6 10^3/uL (0.2-0.9); Monocytes % 8.7 %; Neutrophils # 5.06 10^3/uL (1.8-7.7); Neutrophils % 69.5 %; Nucleated Red Blood Cells % 0 %; Platelet Count 187 10^3/cmm (157-399); Red Blood Count 4.27 10^6/uL (3.85-5.65); Red Cell Distribution Width 13.2 % (12.1-15.1); White Blood Count 7.28 10^3/uL (3.29-11.43)
[2023-02-14 14:02] LABS: Alanine Aminotransferase 8 U/L (0-41); Albumin Level 3.8 g/dL (3.5-5.2); Alkaline Phosphatase 56 U/L (40-130); Anion Gap 12.3 (5-19); Aspartate Amino Transferase 12 U/L (0-40); Blood Urea Nitrogen 16 mg/dL (8-23); Calcium 8.5 mg/dL (8.5-10.5); Carbon Dioxide 26 mmol/L (22-29); Chloride 108 mmol/L (98-107); Globulin 2.3 g/dL (1.3-4.6); Glucose 97 mg/dL (65-115); Osmolality Calculated 295 mOsm/kg (285-295); Potassium 4.3 mmol/L (3.5-5.1); Prostate Specific Antigen 0.102 ng/mL (0-4); Sodium 142 mmol/L (136-145); Testosterone Total 2.5 ng/dL (193-740); Total Bilirubin 0.2 mg/dL (0.15-1.2); Total Protein 6.1 g/dL (6.6-8.7)
[2023-02-14 14:24] VITALS: BP 119/80; PULSE 69; RESP 16; TEMP 36.7; O2SAT 93
[2023-02-14] MEDS: leuprolide 22.5 mg Kit IM (14:36)
[2023-02-14] MEDS: denosumab 120 mg SDV SUBCUT (14:36)
== END 2023-02-14 23:59 | disposition home or self-care (01) ==
PROVIDERS: Nurse Practitioner Family; PCP Family Medicine; Visit Provider Internal Medicine Medical Oncology
DX: Z53.9 Procedure and treatment not carried out, unspecified reason
CPT/HCPCS: 36415; 80053; 84153; 84403; 85025; 96372; 96401; 96402; 99214; J0897; J9217

== ENCOUNTER 2023-05-09 13:29 | Oncology outpatient (recurring) (ONCR) | payer MEDICARE, OTHER, SELFPAY ==
[2023-05-09 13:49] LABS: Basophils # 0.1 10^3/uL (0.0-0.1); Eosinophils # 0.1 10^3/uL (0.0-0.8); Eosinophils % 1.7 %; Hematocrit 42.8 % (37-53); Lymphocytes # 1.7 10^3/uL (0.8-4.8); Lymphocytes % 20.9 %; Mean Corpuscular HGB Conc 33.4 g/dL (30-55); Mean Corpuscular Hemoglobin 31.1 pg (27-33); Mean Platelet Volume 11.8 fL (7.4-10.4); Monocytes # 0.6 10^3/uL (0.2-0.9); Neutrophils % 68.5 %; Nucleated Red Blood Cells % 0 %; Platelet Count 189 10^3/cmm (157-399); Red Cell Distribution Width 12.6 % (12.1-15.1); White Blood Count 8.17 10^3/uL (3.29-11.43)
[2023-05-09 14:16] LABS: Alanine Aminotransferase < 5 U/L (0-41); Albumin Level 3.8 g/dL (3.5-5.2); Alkaline Phosphatase 52 U/L (40-130); Anion Gap 14.9 (5-19); Blood Urea Nitrogen 14 mg/dL (8-23); Calcium 8.8 mg/dL (8.5-10.5); Carbon Dioxide 24 mmol/L (22-29); Chloride 105 mmol/L (98-107); Globulin 2.9 g/dL (1.3-4.6); Glucose 103 mg/dL (65-115); Osmolality Calculated 291 mOsm/kg (285-295); Potassium 3.9 mmol/L (3.5-5.1); Prostate Specific Antigen 0.071 ng/mL (0-4); Sodium 140 mmol/L (136-145); Testosterone Total 2.5 ng/dL (193-740); Total Bilirubin 0.2 mg/dL (0.15-1.2); Total Protein 6.7 g/dL (6.6-8.7)
[2023-05-09 14:25] LABS: Aspartate Amino Transferase 5 U/L (0-40)
[2023-05-09] MEDS: denosumab 120 mg SDV SUBCUT (15:54)
[2023-05-09] MEDS: leuprolide 22.5 mg Kit IM (15:56)
== END 2023-05-16 23:59 | disposition home or self-care (01) ==
PROVIDERS: PCP Family Medicine; Visit Provider Internal Medicine Medical Oncology
DX: C79.51 Secondary malignant neoplasm of bone; C61 Malignant neoplasm of prostate; F17.210 Nicotine dependence, cigarettes, uncomplicated; Z92.3 Personal history of irradiation; Z79.01 Long term (current) use of anticoagulants; Z79.818 Long term (current) use of other agents affecting estrogen receptors and estrogen levels; Z79.899 Other long term (current) drug therapy; I82.401 Acute embolism and thrombosis of unspecified deep veins of right lower extremity
CPT/HCPCS: 36415; 80053; 84153; 84403; 85025; 96372; 96402; 99214; J0897; J9217

== ENCOUNTER 2023-08-01 12:53 | Oncology outpatient (recurring) (ONCR) | payer MEDICARE, OTHER, SELFPAY ==
[2023-08-01 13:21] LABS: Basophils # 0.1 10^3/uL (0.0-0.1); Basophils % 1.1 %; Eosinophils # 0.1 10^3/uL (0.0-0.8); Eosinophils % 1.7 %; Lymphocytes % 14.8 %; Mean Corpuscular Hemoglobin 31.5 pg (27-33); Mean Corpuscular Volume 92.6 fl (82-101); Monocytes # 0.4 10^3/uL (0.2-0.9); Monocytes % 5.7 %; Neutrophils # 4.92 10^3/uL (1.8-7.7); Neutrophils % 75.8 %; Nucleated Red Blood Cells % 0 %; Platelet Count 157 10^3/cmm (157-399); Red Blood Count 4.32 10^6/uL (3.85-5.65); Red Cell Distribution Width 12.8 % (12.1-15.1); White Blood Count 6.49 10^3/uL (3.29-11.43)
[2023-08-01 13:50] LABS: Alanine Aminotransferase 7 U/L (0-41); Albumin Level 3.7 g/dL (3.5-5.2); Alkaline Phosphatase 55 U/L (40-130); Anion Gap 12.3 (5-19); Aspartate Amino Transferase 11 U/L (0-40); Blood Urea Nitrogen 16 mg/dL (8-23); Calcium 8.7 mg/dL (8.5-10.5); Carbon Dioxide 25 mmol/L (22-29); Chloride 106 mmol/L (98-107); Globulin 2.7 g/dL (1.3-4.6); Glucose 170 mg/dL (65-115); Osmolality Calculated 293 mOsm/kg (285-295); Potassium 4.3 mmol/L (3.5-5.1); Prostate Specific Antigen 0.059 ng/mL (0-4); Sodium 139 mmol/L (136-145); Testosterone Total 6.3 ng/dL (193-740); Total Bilirubin 0.3 mg/dL (0.15-1.2); Total Protein 6.4 g/dL (6.6-8.7)
[2023-08-01] MEDS: leuprolide 22.5 mg Kit IM (15:01)
[2023-08-01] MEDS: denosumab 120 mg SDV SUBCUT (15:04)
== END 2023-08-16 23:59 | disposition home or self-care (01) ==
PROVIDERS: Nurse Practitioner Family; PCP Family Medicine; Visit Provider Internal Medicine Medical Oncology
DX: C79.51 Secondary malignant neoplasm of bone; C61 Malignant neoplasm of prostate; Z79.899 Other long term (current) drug therapy; Z51.12 Encounter for antineoplastic immunotherapy; Z79.818 Long term (current) use of other agents affecting estrogen receptors and estrogen levels
CPT/HCPCS: 80053; 84153; 84403; 85025; 96372; 96402; 99214; J0897; J9217

== ENCOUNTER 2023-10-24 13:04 | Oncology outpatient (recurring) (ONCR) | payer MEDICARE, OTHER, SELFPAY ==
[2023-10-24 13:39] LABS: Basophils # 0.1 10^3/uL (0.0-0.1); Basophils % 1.2 %; Eosinophils # 0.2 10^3/uL (0.0-0.8); Eosinophils % 3.1 %; Hematocrit 40.8 % (37-53); Lymphocytes # 1.4 10^3/uL (0.8-4.8); Lymphocytes % 20.2 %; Mean Corpuscular HGB Conc 33.3 g/dL (30-55); Mean Corpuscular Hemoglobin 30.8 pg (27-33); Mean Corpuscular Volume 92.5 fl (82-101); Mean Platelet Volume 11.8 fL (7.4-10.4); Monocytes # 0.5 10^3/uL (0.2-0.9); Monocytes % 7.6 %; Neutrophils # 4.54 10^3/uL (1.8-7.7); Neutrophils % 67.6 %; Nucleated Red Blood Cells % 0 %; Platelet Count 169 10^3/cmm (157-399); Red Blood Count 4.41 10^6/uL (3.85-5.65); Red Cell Distribution Width 12.8 % (12.1-15.1); White Blood Count 6.72 10^3/uL (3.29-11.43)
[2023-10-24 14:04] LABS: Alanine Aminotransferase 7 U/L (0-41); Albumin Level 3.8 g/dL (3.5-5.2); Alkaline Phosphatase 53 U/L (40-130); Anion Gap 13.5 (5-19); Aspartate Amino Transferase 12 U/L (0-40); Blood Urea Nitrogen 15 mg/dL (8-23); Calcium 8.6 mg/dL (8.5-10.5); Carbon Dioxide 23 mmol/L (22-29); Chloride 107 mmol/L (98-107); Globulin 2.5 g/dL (1.3-4.6); Glucose 129 mg/dL (65-115); Osmolality Calculated 291 mOsm/kg (285-295); Potassium 4.5 mmol/L (3.5-5.1); Prostate Specific Antigen 0.056 ng/mL (0-4); Sodium 139 mmol/L (136-145); Total Bilirubin 0.2 mg/dL (0.15-1.2); Total Protein 6.3 g/dL (6.6-8.7)
[2023-10-24 14:58] LABS: Testosterone Total 2.5 ng/dL (193-740)
[2023-10-24] MEDS: denosumab 120 mg SDV SUBCUT (15:35)
[2023-10-24] MEDS: leuprolide 22.5 mg Kit IM (15:36)
== END 2023-11-16 23:59 | disposition home or self-care (01) ==
PROVIDERS: Nurse Practitioner Family; PCP Family Medicine; Visit Provider Internal Medicine Medical Oncology
DX: C61 Malignant neoplasm of prostate; C79.51 Secondary malignant neoplasm of bone; Z79.899 Other long term (current) drug therapy; Z79.818 Long term (current) use of other agents affecting estrogen receptors and estrogen levels; Z51.11 Encounter for antineoplastic chemotherapy; I82.401 Acute embolism and thrombosis of unspecified deep veins of right lower extremity
CPT/HCPCS: 36415; 80053; 84153; 84403; 85025; 96372; 96402; 99214; J0897; J9217

== ENCOUNTER 2024-01-16 07:56 | Oncology outpatient (recurring) (ONCR) | payer MEDICARE, OTHER, SELFPAY ==
[2024-01-16 08:36] LABS: Basophils # 0.1 10^3/uL (0.0-0.1); Basophils % 1.4 %; Eosinophils # 0.2 10^3/uL (0.0-0.8); Eosinophils % 3.1 %; Hematocrit 41.4 % (37-53); Lymphocytes # 1.3 10^3/uL (0.8-4.8); Lymphocytes % 21.5 %; Mean Corpuscular HGB Conc 33.8 g/dL (30-55); Mean Corpuscular Hemoglobin 31.5 pg (27-33); Mean Corpuscular Volume 93.2 fl (82-101); Mean Platelet Volume 11.9 fL (7.4-10.4); Monocytes # 0.4 10^3/uL (0.2-0.9); Neutrophils # 3.86 10^3/uL (1.8-7.7); Neutrophils % 66.3 %; Nucleated Red Blood Cells % 0 %; Platelet Count 163 10^3/cmm (157-399); Red Blood Count 4.44 10^6/uL (3.85-5.65); Red Cell Distribution Width 12.8 % (12.1-15.1); White Blood Count 5.82 10^3/uL (3.29-11.43)
[2024-01-16 09:03] LABS: Alanine Aminotransferase < 5 U/L (0-41); Albumin Level 3.8 g/dL (3.5-5.2); Alkaline Phosphatase 50 U/L (40-130); Anion Gap 13.7 (5-19); Aspartate Amino Transferase 14 U/L (0-40); Blood Urea Nitrogen 10 mg/dL (8-23); Calcium 8.1 mg/dL (8.5-10.5); Carbon Dioxide 22 mmol/L (22-29); Chloride 110 mmol/L (98-107); Creatinine Clr Calc Pharmacy 69.4408; Globulin 2.3 g/dL (1.3-4.6); Glucose 99 mg/dL (65-115); Osmolality Calculated 293 mOsm/kg (285-295); Potassium 3.7 mmol/L (3.5-5.1); Prostate Specific Antigen 0.042 ng/mL (0-4); Sodium 142 mmol/L (136-145); Testosterone Total 9.9 ng/dL (193-740); Total Bilirubin 0.3 mg/dL (0.15-1.2); Total Protein 6.1 g/dL (6.6-8.7)
[2024-01-16] MEDS: leuprolide 22.5 mg Kit IM (12:58)
== END 2024-01-16 23:59 | disposition home or self-care (01) ==
PROVIDERS: Nurse Practitioner Family; PCP Family Medicine; Visit Provider Internal Medicine Hematology & Oncology
DX: Z51.11 Encounter for antineoplastic chemotherapy (principal); C61 Malignant neoplasm of prostate; C79.51 Secondary malignant neoplasm of bone; Z79.899 Other long term (current) drug therapy; Z79.818 Long term (current) use of other agents affecting estrogen receptors and estrogen levels; I82.401 Acute embolism and thrombosis of unspecified deep veins of right lower extremity
CPT/HCPCS: 36415; 36591; 80053; 84153; 84403; 85025; 96372; 99214; J9217

== ENCOUNTER 2024-02-12 08:55 | Oncology outpatient (recurring) (ONCR) | payer MEDICARE, OTHER, SELFPAY ==
[2024-02-12 09:48] LABS: Alanine Aminotransferase < 5 U/L (0-41); Albumin Level 3.7 g/dL (3.5-5.2); Alkaline Phosphatase 46 U/L (40-130); Anion Gap 14.3 (5-19); Aspartate Amino Transferase 11 U/L (0-40); Blood Urea Nitrogen 16 mg/dL (8-23); Calcium 8.5 mg/dL (8.5-10.5); Carbon Dioxide 23 mmol/L (22-29); Chloride 109 mmol/L (98-107); Globulin 2.3 g/dL (1.3-4.6); Glucose 131 mg/dL (65-115); Osmolality Calculated 297 mOsm/kg (285-295); Potassium 4.3 mmol/L (3.5-5.1); Sodium 142 mmol/L (136-145); Total Bilirubin 0.3 mg/dL (0.15-1.2)
[2024-02-12] MEDS: denosumab 120 mg SDV SUBCUT (10:52)
== END 2024-02-15 23:59 | disposition home or self-care (01) ==
PROVIDERS: Nurse Practitioner Family; PCP Family Medicine; Visit Provider Internal Medicine
DX: Z51.11 Encounter for antineoplastic chemotherapy (principal); C61 Malignant neoplasm of prostate; C79.51 Secondary malignant neoplasm of bone; Z79.899 Other long term (current) drug therapy; Z79.818 Long term (current) use of other agents affecting estrogen receptors and estrogen levels; I82.401 Acute embolism and thrombosis of unspecified deep veins of right lower extremity
CPT/HCPCS: 80053; 96401; J0897

== ENCOUNTER 2024-03-13 08:57 | Oncology outpatient (recurring) (ONCR) | payer MEDICARE, OTHER, SELFPAY ==
[2024-03-13 09:41] VITALS: BP 104/67; PULSE 84; RESP 17; TEMP 35.8; O2SAT 93
== END 2024-03-17 23:59 | disposition home or self-care (01) ==
PROVIDERS: PCP Family Medicine; Visit Provider Internal Medicine
DX: Z53.9 Procedure and treatment not carried out, unspecified reason

== ENCOUNTER 2024-04-16 09:42 | Oncology outpatient (recurring) (ONCR) | payer MEDICARE, OTHER, SELFPAY ==
[2024-04-16 10:41] LABS: Basophils # 0.1 10^3/uL (0.0-0.1); Basophils % 0.6 %; Eosinophils # 0.1 10^3/uL (0.0-0.8); Hematocrit 41.4 % (37-53); Lymphocytes % 8.7 %; Mean Corpuscular HGB Conc 33.1 g/dL (30-55); Mean Corpuscular Hemoglobin 30.2 pg (27-33); Mean Corpuscular Volume 91.2 fl (82-101); Mean Platelet Volume 11.4 fL (7.4-10.4); Monocytes # 0.7 10^3/uL (0.2-0.9); Monocytes % 6.3 %; Neutrophils # 9.57 10^3/uL (1.8-7.7); Neutrophils % 82.7 %; Nucleated Red Blood Cells % 0 %; Platelet Count 229 10^3/cmm (157-399); Red Blood Count 4.54 10^6/uL (3.85-5.65); Red Cell Distribution Width 12.4 % (12.1-15.1); White Blood Count 11.57 10^3/uL (3.29-11.43)
[2024-04-16 11:20] LABS: Alanine Aminotransferase < 5 U/L (0-41); Albumin Level 3.5 g/dL (3.5-5.2); Alkaline Phosphatase 66 U/L (40-130); Aspartate Amino Transferase 10 U/L (0-40); Blood Urea Nitrogen 13 mg/dL (8-23); Calcium 8.8 mg/dL (8.5-10.5); Carbon Dioxide 23 mmol/L (22-29); Chloride 102 mmol/L (98-107); Creatinine Clr Calc Pharmacy 67.2962; Globulin 2.9 g/dL (1.3-4.6); Glucose 105 mg/dL (65-115); Osmolality Calculated 284 mOsm/kg (285-295); Prostate Specific Antigen 0.059 ng/mL (0-4); Sodium 137 mmol/L (136-145); Testosterone Total 6.2 ng/dL (193-740); Total Bilirubin 0.2 mg/dL (0.15-1.2); Total Protein 6.4 g/dL (6.6-8.7)
[2024-04-16] MEDS: denosumab 120 mg SDV SUBCUT (12:33)
[2024-04-16] MEDS: leuprolide 22.5 mg Kit IM (12:33)
== END 2024-04-17 23:59 | disposition home or self-care (01) ==
PROVIDERS: Nurse Practitioner; PCP Family Medicine; Visit Provider Internal Medicine
DX: Z51.11 Encounter for antineoplastic chemotherapy (principal); C61 Malignant neoplasm of prostate; C79.51 Secondary malignant neoplasm of bone; Z79.818 Long term (current) use of other agents affecting estrogen receptors and estrogen levels
CPT/HCPCS: 36415; 80053; 84153; 84403; 85025; 96372; 96402; J0897; J9217

== ENCOUNTER 2024-04-23 14:54 | Oncology outpatient (recurring) (ONCR) | payer MEDICARE, OTHER, SELFPAY ==
--- NOTE | 2024-04-23 15:00 | USCV_ITS ---
Zain Brown Age: 79 Gender: M : 1945 Exam Date: 04/23/2024 15:00 Ordering Phys: Nati Campos NP Technologist: R Exam Location: [facility] [place]_ Indication: prior dvt-2 years ago HISTORY: DVT. PROCEDURES: Venous duplex imaging was performed in only the right lower extremity. The following venous structures were evaluated: common femoral vein, profunda vein, proximal portion of the greater saphenous vein, superficial femoral vein, and the popliteal vein. In addition, the posterior tibial and peroneal trunk were evaluated. FINDINGS: Normal 2-D Doppler and augmentation and compressibility throughout the lower extremity venous structures. Additional imaging through the proximal calf veins also reveals no thrombus. Limited evaluation of the greater saphenous vein is patent with no thrombus. CONCLUSIONS No DVT right lower extremity. Dr. Carine Johnson DO (Electronically Signed) Final Date: 23 April 2024 15:46 S
== END 2024-05-15 23:59 | disposition home or self-care (01) ==
PROVIDERS: PCP Family Medicine; Visit Provider Nurse Practitioner
DX: I82.401 Acute embolism and thrombosis of unspecified deep veins of right lower extremity (principal)
CPT/HCPCS: 93971

== ENCOUNTER 2024-07-09 09:26 | Oncology outpatient (recurring) (ONCR) | payer MEDICARE, OTHER, SELFPAY ==
[2024-07-09 09:55] LABS: Basophils # 0.1 10^3/uL (0.0-0.1); Eosinophils # 0.1 10^3/uL (0.0-0.8); Eosinophils % 2.3 %; Hematocrit 40.5 % (37-53); Lymphocytes # 1.3 10^3/uL (0.8-4.8); Lymphocytes % 20.6 %; Mean Corpuscular HGB Conc 33.1 g/dL (30-55); Mean Corpuscular Hemoglobin 30.9 pg (27-33); Mean Corpuscular Volume 93.3 fl (82-101); Mean Platelet Volume 11.8 fL (7.4-10.4); Monocytes # 0.5 10^3/uL (0.2-0.9); Monocytes % 7.2 %; Neutrophils # 4.27 10^3/uL (1.8-7.7); Neutrophils % 68.6 %; Nucleated Red Blood Cells % 0 %; Platelet Count 151 10^3/cmm (157-399); Red Blood Count 4.34 10^6/uL (3.85-5.65); Red Cell Distribution Width 12.8 % (12.1-15.1); White Blood Count 6.22 10^3/uL (3.29-11.43)
[2024-07-09 10:23] LABS: Alanine Aminotransferase < 5 U/L (0-41); Albumin Level 3.8 g/dL (3.5-5.2); Alkaline Phosphatase 46 U/L (40-130); Anion Gap 11.1 (5-19); Aspartate Amino Transferase 11 U/L (0-40); Blood Urea Nitrogen 17 mg/dL (8-23); Calcium 8.7 mg/dL (8.5-10.5); Carbon Dioxide 24 mmol/L (22-29); Chloride 109 mmol/L (98-107); Globulin 2.4 g/dL (1.3-4.6); Glucose 105 mg/dL (65-115); Osmolality Calculated 292 mOsm/kg (285-295); Potassium 4.1 mmol/L (3.5-5.1); Prostate Specific Antigen 0.032 ng/mL (0-4); Sodium 140 mmol/L (136-145); Testosterone Total < 2.5 ng/dL (193-740); Total Bilirubin 0.2 mg/dL (0.15-1.2); Total Protein 6.2 g/dL (6.6-8.7)
[2024-07-09] MEDS: leuprolide 22.5 mg Kit IM (11:19)
[2024-07-09] MEDS: denosumab 120 mg SDV SUBCUT (11:19)
== END 2024-07-15 23:59 | disposition home or self-care (01) ==
PROVIDERS: Nurse Practitioner; PCP Family Medicine; Visit Provider Internal Medicine
DX: Z51.11 Encounter for antineoplastic chemotherapy (principal); C61 Malignant neoplasm of prostate; C79.51 Secondary malignant neoplasm of bone; I82.401 Acute embolism and thrombosis of unspecified deep veins of right lower extremity; Z79.818 Long term (current) use of other agents affecting estrogen receptors and estrogen levels; F17.210 Nicotine dependence, cigarettes, uncomplicated; Z86.718 Personal history of other venous thrombosis and embolism; Z92.3 Personal history of irradiation
CPT/HCPCS: 36415; 80053; 84153; 84403; 85025; 96372; 96402; 99213; J0897; J9217

== ENCOUNTER 2024-10-15 11:58 | Oncology outpatient (recurring) (ONCR) | payer MEDICARE, OTHER, SELFPAY ==
[2024-10-15 12:46] LABS: Hematocrit 39.1 % (37-53); Hemoglobin 12.90 g/dL (11.27-16.99); Mean Corpuscular HGB Conc 33.0 g/dL (30-55); Mean Corpuscular Hemoglobin 30.4 pg (27-33); Mean Corpuscular Volume 92.2 fl (82-101); Nucleated Red Blood Cells % 0 %; Platelet Count 159 10^3/cmm (157-399); Red Blood Count 4.24 10^6/uL (3.85-5.65); White Blood Count 7.99 10^3/uL (3.29-11.43)
[2024-10-15 13:19] LABS: Alanine Aminotransferase 6 U/L (0-41); Albumin Level 3.5 g/dL (3.5-5.2); Alkaline Phosphatase 50 U/L (40-130); Anion Gap 13.0 (5-19); Aspartate Amino Transferase 8 U/L (0-40); Blood Urea Nitrogen 13 mg/dL (8-23); Calcium 7.9 mg/dL (8.5-10.5); Carbon Dioxide 25 mmol/L (22-29); Chloride 108 mmol/L (98-107); Creatinine Clr Calc Pharmacy 67.4724; Globulin 2.4 g/dL (1.3-4.6); Glucose 112 mg/dL (65-115); Osmolality Calculated 295 mOsm/kg (285-295); Potassium 4.0 mmol/L (3.5-5.1); Prostate Specific Antigen 0.044 ng/mL (0-4); Sodium 142 mmol/L (136-145); Total Protein 5.9 g/dL (6.6-8.7)
[2024-10-15] MEDS: leuprolide 22.5 mg Kit IM (13:57)
== END 2024-10-15 23:59 | disposition home or self-care (01) ==
PROVIDERS: Internal Medicine; PCP Family Medicine; Visit Provider Internal Medicine
DX: Z51.11 Encounter for antineoplastic chemotherapy (principal); C61 Malignant neoplasm of prostate; C79.51 Secondary malignant neoplasm of bone; Z79.818 Long term (current) use of other agents affecting estrogen receptors and estrogen levels; F17.210 Nicotine dependence, cigarettes, uncomplicated; R63.4 Abnormal weight loss; Z68.20 Body mass index [BMI] 20.0-20.9, adult
CPT/HCPCS: 36415; 80053; 84153; 85025; 85378; 96402; 99214; J9217

== ENCOUNTER 2024-10-29 13:00 | Oncology outpatient (recurring) (ONCR) | payer MEDICARE, OTHER, SELFPAY ==
[2024-10-29] MEDS: denosumab 120 mg SDV SUBCUT (14:53)
== END 2024-11-15 23:59 | disposition home or self-care (01) ==
LOC: ONCMED 13:01
PROVIDERS: PCP Family Medicine; Visit Provider Internal Medicine
DX: C61 Malignant neoplasm of prostate (principal)
CPT/HCPCS: 36415; 80053; 84153; 84403; 85025; 96377; J0897

== ENCOUNTER 2025-01-14 13:17 | Oncology outpatient (recurring) (ONCR) | payer MEDICARE, OTHER, SELFPAY ==
[2025-01-14 14:30] LABS: Hematocrit 39.2 % (37-53); Hemoglobin 12.90 g/dL (11.27-16.99); Mean Corpuscular HGB Conc 32.9 g/dL (30-55); Mean Corpuscular Hemoglobin 31.1 pg (27-33); Mean Corpuscular Volume 94.5 fl (82-101); Nucleated Red Blood Cells % 0 %; Platelet Count 173 10^3/cmm (157-399); Red Blood Count 4.15 10^6/uL (3.85-5.65); White Blood Count 6.12 10^3/uL (3.29-11.43)
[2025-01-14 14:56] LABS: Alanine Aminotransferase 6 U/L (0-41); Albumin Level 3.8 g/dL (3.5-5.2); Alkaline Phosphatase 49 U/L (40-130); Anion Gap 14.6 (5-19); Aspartate Amino Transferase 10 U/L (0-40); Blood Urea Nitrogen 15 mg/dL (8-23); Calcium 8.3 mg/dL (8.5-10.5); Carbon Dioxide 22 mmol/L (22-29); Chloride 111 mmol/L (98-107); Creatinine Clr Calc Pharmacy 75.1317; Globulin 2.3 g/dL (1.3-4.6); Glucose 106 mg/dL (65-115); Osmolality Calculated 299 mOsm/kg (285-295); Potassium 3.6 mmol/L (3.5-5.1); Prostate Specific Antigen 0.062 ng/mL (0-4); Sodium 144 mmol/L (136-145); Total Protein 6.1 g/dL (6.6-8.7)
[2025-01-14] MEDS: leuprolide 22.5 mg Kit IM (15:19)
== END 2025-01-15 23:59 | disposition home or self-care (01) ==
PROVIDERS: Nurse Practitioner Family; PCP Family Medicine; Visit Provider Internal Medicine
DX: Z51.11 Encounter for antineoplastic chemotherapy (principal); C61 Malignant neoplasm of prostate; Z79.818 Long term (current) use of other agents affecting estrogen receptors and estrogen levels; C79.51 Secondary malignant neoplasm of bone; F17.210 Nicotine dependence, cigarettes, uncomplicated; Z86.718 Personal history of other venous thrombosis and embolism
CPT/HCPCS: 36415; 80053; 84153; 84403; 85025; 96402; 99213; J9217

== ENCOUNTER 2025-01-21 14:00 | Oncology outpatient (recurring) (ONCR) | payer MEDICARE, OTHER, SELFPAY ==
[2025-01-21] MEDS: denosumab 120 mg SDV (Infusion Clinic Only) SUBCUT (14:28)
== END 2025-02-14 23:59 | disposition home or self-care (01) ==
PROVIDERS: PCP Family Medicine; Visit Provider Internal Medicine
DX: C79.51 Secondary malignant neoplasm of bone (principal); Z79.899 Other long term (current) drug therapy
CPT/HCPCS: 96372; J0897